=== PATIENT | female | born 1965 | race Caucasian/White ===

== ENCOUNTER → 2020-09-17 15:45 | Outpatient (BNVA) | payer OTHER, SELFPAY | PROVIDERS: PCP Internal Medicine; Visit Provider Physician Assistant | DX: Z76.89 Persons encountering health services in other specified circumstances (principal) ==

== ENCOUNTER → 2020-09-21 08:10 | Outpatient (BNVA) | payer OTHER, SELFPAY | PROVIDERS: PCP Internal Medicine; Referring Provider Internal Medicine; Visit Provider Surgery | DX: Z76.89 Persons encountering health services in other specified circumstances (principal) ==

== ENCOUNTER → 2020-09-28 09:03 | Outpatient (BNVA) | payer OTHER, SELFPAY | PROVIDERS: PCP Internal Medicine; Visit Provider Physician Assistant | DX: Z76.89 Persons encountering health services in other specified circumstances (principal) ==

== ENCOUNTER 2020-09-28 09:42 | Outpatient (REF) | payer OTHER, SELFPAY ==
--- NOTE | 2020-09-28 10:14 | ECG_ITS ---
Test Reason : SOB, PREOP Blood Pressure : / mmHG Vent. Rate : 077 BPM Atrial Rate : 077 BPM P-R Int : 182 ms QRS Dur : 090 ms QT Int : 430 ms P-R-T Axes : 050 035 020 degrees QTc Int : 486 ms Normal sinus rhythm Nonspecific T wave abnormality Borderline ECG No previous ECGs available Referred By: Zack Patel Electronically Signed By:SAMIR VILLATORO MD
--- NOTE | 2020-09-28 10:27 | XR_ITS ---
EXAMINATION: XR CHEST CLINICAL INFORMATION: Gastroesophageal reflux disease without esophagitis COMPARISON: None TECHNIQUE: 2 views of the chest were obtained. FINDINGS: The cardiac and mediastinal contours are normal. The lungs are clear. There is no pleural effusion or pneumothorax there are postsurgical changes to the cervical spine. There are mild degenerative changes of the thoracic spine. XR/XR chest 2V IMPRESSION: No evidence for acute disease in the chest.
[2020-09-28 10:48] LABS: MANUAL DIFF FLAG NO
[2020-09-28 10:58] LABS: Eosinophils Absolute Auto 0.1 X10*3/uL (0.0-0.4); Eosinophils Percent Auto 1.3 % (0-4); Hematocrit 40.1 % (37-47); Hemoglobin 13.3 g/dl (12.0-16.0); Imm Gran Abs Auto 0.01 X10*3/uL (0.00-0.03); Imm Gran Pct Auto 0.3 % (0.0-0.4); Lymphocytes Absolute Auto 1.1 X10*3/uL (1.2-4.9); Lymphocytes Percent Auto 28.1 % (20-40); Mean Corpuscular HGB Conc 33.2 g/dl (31.0-35.0); Mean Corpuscular Hemoglobin 29.1 pg (27.0-33.0); Mean Corpuscular Volume 87.7 fL (80-98); Mean Platelet Volume 9.7 fL (9.4-12.3); Monocytes Absolute Auto 0.2 X10*3/uL (0.1-1.2); Monocytes Percent Auto 5.3 % (2-11); Neutrophils Absolute Auto 2.5 X10*3/uL (2.0-8.3); Platelet Count 265 X10*3/uL (160-400); Red Blood Count 4.57 X10*6/uL (4.20-5.50); Red Cell Distribution Width 12.2 % (11.0-16.0)
[2020-09-28 11:01] LABS: Estimated Average Glucose 143 mg/dL; Hemoglobin A1c % 6.6 %
[2020-09-28 11:25] LABS: Alanine Aminotransferase 47 U/L (0-31); Albumin Level 4.7 g/dL (3.5-5.0); Alkaline Phosphatase 87 U/L (39-117); Anion Gap 15 (12-20); Aspartate Amino Transferase 33 U/L (5-31); Bilirubin Total 0.9 mg/dL (0.0-1.0); Blood Urea Nitrogen 17 mg/dL (9-16); C Reactive Protein 0.67 mg/dL (< or = 0.50); Carbon Dioxide 26 mmol/L (22-29); Chloride 103 mmol/L (96-108); Cholesterol 226 mg/dL; Estimated Glomerular Filt Rate 46; Glucose Random 128 mg/dL (60-115); HDL Cholesterol 46 mg/dL; LDL Cholesterol Calculated 154 mg/dl; Potassium 4.1 mmol/l (3.3-5.1); Sodium 140 mmol/L (135-145); Total Protein 7.2 g/dL (6.5-8.0); Triglycerides 132 mg/dL
[2020-09-28 11:50] LABS: Ferritin 145 ng/mL (10-250); TSH reflex Free T4 1.12 mIU/mL (0.32-4.0)
[2020-09-28 11:59] LABS: Folate 13.8 ng/mL (> or = 4.0); Vitamin B12 933 pg/mL (200-900)
[2020-09-29 12:11] LABS: Insulin Level Total 9.8 uIU/mL
[2020-10-01 00:26] LABS: Zinc 68 mcg/dL (60-130)
[2020-10-02 12:52] LABS: Vitamin B1 <6 nmol/L (8-30)
[2020-10-03 10:31] LABS: Vitamin A 88 mcg/dL (38-98)
== END 2020-09-28 09:43 | disposition home or self-care (01) ==
LOC: HO.LAB 09:42
PROVIDERS: PCP Internal Medicine; Visit Provider Surgery
DX: Z01.818 Encounter for other preprocedural examination (principal); K21.9 Gastro-esophageal reflux disease without esophagitis
CPT/HCPCS: 36415; 71046; 80053; 80061; 82607; 82728; 82746; 83036; 83525; 84425; 84443; 84590; 84630; 85025; 86140; 93005

== ENCOUNTER → 2020-10-01 07:47 | Outpatient (BNVA) | payer OTHER, SELFPAY | PROVIDERS: Visit Provider Dietitian, Registered | DX: Z76.89 Persons encountering health services in other specified circumstances (principal) ==

== ENCOUNTER 2020-10-08 09:00 | Outpatient (REF) | payer OTHER, SELFPAY ==
--- NOTE | 2020-10-08 08:49 | US_ITS ---
EXAMINATION: US COMPLETE ABDOMEN WITH LIVER ELASTOGRAPHY CLINICAL INFORMATION: Morbid obesity COMPARISON: None. TECHNIQUE: Real-time imaging of the abdominal viscera. Noninvasive ultrasound liver fibrosis assessment is performed using Angela ElastPQ point quantification shear wave elastography (pSWE) with a 5 MHz transducer. Multiple elastography samples are obtained. FINDINGS: PANCREAS: Normal. The visualized pancreatic head and body are normal in appearance. The remainder of the pancreas is obscured from visualization by the overlying bowel gas. ABDOMINAL AORTA: The proximal, middle, and distal aortic segments are normal in caliber. INFERIOR VENA CAVA: Visualized portions are normal. LIVER: There is diffusely increased echogenicity consistent with fatty infiltration. No focal mass or intrahepatic bile ductal dilatation is seen. There is noted with hepatopedal flow within the main portal vein. The right lobe measures 14.2 cm in length. The left lobe measures 11.4 cm in length. Shear wave elastography provides a median stiffness of 1.10 m/s (reference: normal median stiffness is 0.81 - 1.22 m/s). The IQR/median stiffness to assess sampling precision is 0.2 (reference: optimal IQR/median stiffness is under 0.3). GALLBLADDER: Status post cholecystectomy COMMON BILE DUCT: Not identified RIGHT KIDNEY: Status post nephrectomy. LEFT KIDNEY: Normal. No hydronephrosis. No renal calculi or focal parenchymal lesions. The kidney measures 14.8 cm in maximum dimension. SPLEEN: Enlarged. The spleen measures 14.0 cm in maximum dimension. FREE FLUID: None. US/US abdomen comp w elastography IMPRESSION: 1. Fatty infiltration of the liver. 2. Elastography: Liver elastography measurements are within normal (METAVIR Stage F0). Status post right nephrectomy. Mild splenomegaly.
--- NOTE | 2020-10-08 09:12 | FL_ITS ---
EXAMINATION: XR GI SERIES CLINICAL INFORMATION: Gastroesophageal reflux disease without esophagitis. COMPARISON: None. TECHNIQUE: Dual contrast upper GI examination. FINDINGS: Patient swallowed CO2 crystals, thin barium, and thick barium without difficulty. No nasopharyngeal reflux or tracheal aspiration identified. There was a corkscrew appearance within the distal half of the esophagus, however, the patient denies any chest pain or other symptoms with this. There was no delay in esophageal emptying. There is a small hiatal hernia present. No gastroesophageal reflux was elicited including with water siphon test. The stomach demonstrates normal distensibility without evidence of abnormal mass or ulceration. There was no delay in gastric emptying. The duodenal bulb and sweep appear unremarkable. FLUOROSCOPY TIME: 2.1 minutes. DOSE AREA PRODUCT: 29.451 Gy-cm2. FL/FL upper GI series IMPRESSION: Small hiatal hernia without evidence of gastroesophageal reflux. Corkscrew appearance within the distal esophagus with swallowing with no delay in transit appreciated and with no symptoms of chest pain.
== END 2020-10-08 09:01 | disposition home or self-care (01) ==
LOC: HO.US 09:00
PROVIDERS: PCP Internal Medicine; Visit Provider Surgery
DX: Z01.818 Encounter for other preprocedural examination (principal); K21.9 Gastro-esophageal reflux disease without esophagitis; E66.01 Morbid (severe) obesity due to excess calories
CPT/HCPCS: 74240; 76705; 76981

== ENCOUNTER 2020-10-13 09:17 | Outpatient (REF) | payer OTHER, SELFPAY ==
[2020-10-14 15:32] LABS: H Pylori Breath Test NOT DETECTED (NOT DETECTED)
== END 2020-10-13 09:18 | disposition home or self-care (01) ==
LOC: HO.LNP 09:17
PROVIDERS: PCP Internal Medicine; Visit Provider Physician Assistant
DX: Z01.818 Encounter for other preprocedural examination (principal); E66.01 Morbid (severe) obesity due to excess calories
CPT/HCPCS: 83013

== ENCOUNTER → 2020-10-14 07:39 | Outpatient (BNVA) | payer OTHER, SELFPAY | PROVIDERS: PCP Internal Medicine; Visit Provider Surgery | DX: Z76.89 Persons encountering health services in other specified circumstances (principal) ==

== ENCOUNTER → 2020-10-20 08:21 | Outpatient (BNVA) | payer OTHER, SELFPAY | PROVIDERS: Visit Provider Dietitian, Registered | DX: Z76.89 Persons encountering health services in other specified circumstances (principal) ==

== ENCOUNTER → 2020-10-30 08:39 | Outpatient (BNVA) | payer OTHER, SELFPAY | PROVIDERS: PCP Internal Medicine; Visit Provider Physician Assistant | DX: Z76.89 Persons encountering health services in other specified circumstances (principal) ==

== ENCOUNTER → 2020-11-02 08:04 | Outpatient (BNVA) | payer OTHER, SELFPAY | PROVIDERS: PCP Internal Medicine; Referring Provider Internal Medicine; Visit Provider Surgery | DX: Z76.89 Persons encountering health services in other specified circumstances (principal) ==

== ENCOUNTER → 2020-11-10 15:01 | Outpatient (REF) | payer OTHER, SELFPAY ==
--- NOTE | 2020-11-10 15:04 | CA_ITS ---
Transthoracic Echocardiogram Patient (Last, First, Middle): Irma Can L Gender: Female Date of : 1965 Age: 55 Procedure Date: 11/10/2020 Procedure Type: Transthoracic Echocardiogram Location: OP Height: 162.56 cm Weight: 99.34 kg BSA: 2.03 m2 Heart Rate: bpm BP: 134 / 80 mmHg Program Control Analyst: Referring MD: Zack Patel MD Symptoms: I10 HTN, Z01.818 PRE OP Study Quality: Fair ECG Rhythm: Sinus Conclusions: - The left ventricular systolic function is normal. The visually estimated ejection fraction is between 60-65%. - No obvious valvular pathology seen on this study. Findings Procedure Information Contrast agent, definity, is being given per protocol without apparent complications. Left Ventricle Normal left ventricular cavity size. There is mildly increased left ventricular wall thickness. The left ventricular systolic function is normal. The visually estimated ejection fraction is between 60-65%. There is no evidence of regional wall motion abnormalities. Diastolic function is normal for age. Right Ventricle Normal right ventricular cavity size and systolic function. Atria The left atrium is normal in size. The right atrium is normal in size. Aortic Valve There is a normal trileaflet aortic valve. There is no aortic valve stenosis. There is no aortic valve regurgitation. Mitral Valve The mitral valve appears normal. There is trace mitral valve regurgitation. There is no mitral valve stenosis. Pulmonic Valve The pulmonic valve was not well visualized. Tricuspid Valve Normal tricuspid valve structure. There is trace tricuspid valve regurgitation. The pulmonary artery systolic pressure is normal. Great Vessels The aortic annulus, sinuses of valsalva, and asc aorta are normal in size. Venous The inferior vena cava is normal in size and collapses greater than 50% with inspiration. Pericardium/Pleural There is no evidence of pericardial effusion. Prior Study Comparison No prior study available for comparison. Recommendations, Care & Conclusions No obvious valvular pathology seen on this study. Measurements 2D Linear Measurements RVIDd: 3.28 RVIDd Index: 1.62 IVSd: 1.12 0.6-0.9/0.6-1.0 cm LVIDd: 4.76 3.9-5.3/4.2-5.9 cm LVIDd Index: 2.34 2.4-3.2/2.2-3.1 cm/m2 LVIDs: 2.64 2.0-3.6 cm LVPWd: 1.31 0.7-1.1 cm Ao Root: 3.00 2.1-3.5 cm LA Diam: 3.60 2.7-3.8/3.0-4.0 cm LAIDs Index: 1.77 1.5-2.3 cm/m2 LV Mass: 274.40 67-162/88-224 g LV Mass Index: 135.17 43-95/49-115 g/m2 LVOT Diam: 2.20 3.0+(-)1.3 cm 2D Systolic Function EF 4C: 72.20 >55% EF 2C: 56.30 >55% EF BiP: 65.20 >55% Mitral Valve MV Pk E: 0.73 MV PK A: 0.83 MV Decel Time: 208.00 E/A: 0.90 E'Lateral: 6.96 E'Medial: 5.00 E/E' Med: 14.60 E/E' Lat: 10.50 Aortic Valve AoV Pk Giorgio: 1.32 AoV Mn Giorgio: 1.06 AoV VTI: 0.31 AoV Pk Grad: 7.00 Aov Mn Grad: 5.00 KRISH Cont.VTI: 2.58 LVOT LVOT Pk Giorgio: 0.97 LVOT Mn Giorgio: 0.66 LVOT VTI: 0.21 LVOT Pk Grad: 4.00 LVOT Mn Grad: 2.00 LVOT Diam: 2.20 LVOT Area: 3.80 Diastolic Function MV Pk E: 0.73 MV Pk A: 0.83 E/A: 0.90 E'Medial: 5.00 E/E' Med: 14.60 E' Laterial: 6.96 E/E' Lat: 10.50 Tricuspid Valve RA Press: 3.00 Great Vessels Aorta Ao Root-2D: 3.00 2.0-3.7 cm Ao Asc: 3.20 2.1-3.4 cm Updated in Other Vendor System with Status of Final Rojas Castillo MD electronically signed on 11/11/2020 8:58:33 AM with status of Final
== END ==
LOC: HO.CARD 15:01
PROVIDERS: PCP Internal Medicine; Visit Provider Surgery
DX: Z01.818 Encounter for other preprocedural examination (principal); I10 Essential (primary) hypertension; R94.31 Abnormal electrocardiogram [ECG] [EKG]
CPT/HCPCS: 93306; Q9957

== ENCOUNTER → 2020-11-25 08:25 | Outpatient (BNVA) | payer OTHER, SELFPAY | PROVIDERS: PCP Internal Medicine; Visit Provider Surgery | DX: Z76.89 Persons encountering health services in other specified circumstances (principal) ==

== ENCOUNTER → 2020-12-18 13:59 | Outpatient (BNVA) | payer OTHER, SELFPAY | PROVIDERS: PCP Internal Medicine; Visit Provider Physician Assistant ==

== ENCOUNTER 2020-12-21 06:28 | Outpatient (REF) | payer OTHER, SELFPAY ==
[2020-12-21 07:06] LABS: MANUAL DIFF FLAG NO
[2020-12-21 07:09] LABS: Basophils Percent Auto 0.6 % (0-2); Eosinophils Absolute Auto 0.1 X10*3/uL (0.0-0.4); Eosinophils Percent Auto 1.6 % (0-4); Hematocrit 41.7 % (37-47); Hemoglobin 13.4 g/dl (12.0-16.0); Imm Gran Abs Auto 0.01 X10*3/uL (0.00-0.03); Imm Gran Pct Auto 0.2 % (0.0-0.4); Lymphocytes Absolute Auto 1.4 X10*3/uL (1.2-4.9); Lymphocytes Percent Auto 28.5 % (20-40); Mean Corpuscular HGB Conc 32.1 g/dl (31.0-35.0); Mean Corpuscular Hemoglobin 27.9 pg (27.0-33.0); Mean Corpuscular Volume 86.9 fL (80-98); Mean Platelet Volume 9.3 fL (9.4-12.3); Monocytes Absolute Auto 0.3 X10*3/uL (0.1-1.2); Monocytes Percent Auto 6.5 % (2-11); Neutrophils Absolute Auto 3.2 X10*3/uL (2.0-8.3); Neutrophils Percent Auto 62.6 % (45-73); Platelet Count 233 X10*3/uL (160-400); Red Cell Distribution Width 12.9 % (11.0-16.0); White Blood Count 5.1 X10*3/uL (4.8-10.8)
[2020-12-21 07:19] LABS: INTERNATIONAL NORM RATIO 1.1 (0.9-1.1)
[2020-12-21 07:25] LABS: Alanine Aminotransferase 20 U/L (0-31); Albumin Level 4.4 g/dL (3.5-5.0); Alkaline Phosphatase 91 U/L (39-117); Anion Gap 13 (12-20); Aspartate Amino Transferase 14 U/L (5-31); Bilirubin Total 1.1 mg/dL (0.0-1.0); Blood Urea Nitrogen 21 mg/dL (9-16); C Reactive Protein 0.48 mg/dL (< or = 0.50); Calcium 9.6 mg/dL (8.4-10.2); Carbon Dioxide 27 mmol/L (22-29); Chloride 105 mmol/L (96-108); Cholesterol 184 mg/dL; Estimated Glomerular Filt Rate 47; Glucose Random 97 mg/dL (60-115); HDL Cholesterol 44 mg/dL; LDL Cholesterol Calculated 121 mg/dl; Sodium 141 mmol/L (135-145); Total Protein 6.8 g/dL (6.5-8.0); Triglycerides 98 mg/dL
[2020-12-21 07:47] LABS: TSH reflex Free T4 1.79 mIU/mL (0.32-4.0)
[2020-12-21 07:53] LABS: Estimated Average Glucose 111 mg/dL; Hemoglobin A1C 128.0404 umol/L; Hemoglobin A1c % 5.5 %
[2020-12-22 17:52] LABS: Insulin Level Total 5.1 uIU/mL
== END 2020-12-21 06:29 | disposition home or self-care (01) ==
LOC: HO.LAB 06:28
PROVIDERS: PCP Internal Medicine; Visit Provider Surgery
DX: E66.9 Obesity, unspecified (principal); Z68.36 Body mass index [BMI] 36.0-36.9, adult
CPT/HCPCS: 36415; 80053; 80061; 83036; 83525; 84443; 85025; 85610; 85730; 86140

== ENCOUNTER 2020-12-29 05:55 | Inpatient (IN) | payer OTHER, SELFPAY ==
[2020-12-16 13:34] VITALS: BMI 37.0
--- NOTE | 2020-12-28 10:59 | P.CONAN_ITS ---
Documented by User: Indy Cunha 12/28/20 11:02 HPI - Anesthesia Eval Consult details Narrative: 55yo F for Gastrectomy Sleeve PMFSH Past Medical History Medical History Anxiety Depression GERD (gastroesophageal reflux disease) Hx of renal cell carcinoma Morbid obesity Periodic limb movement disorder Sleep apnea with use of nocturnal bilevel positive airway pressure (BPAP) Family History Family History Father No problems noted. Mother No problems noted. Brother No problems noted. Sister No problems noted. Son No problems noted. Daughter No problems noted. Daughter Neuroblastoma Surgical History Surgical History History of anterior cruciate ligament surgery History of nephrectomy Hx of cholecystectomy Hx of lumpectomy Hx of rectal sphincterotomy S/P excision of lipoma S/P ZANDRA-BSO (total abdominal hysterectomy and bilateral salpingo-oophorectomy) Social History Social History Are you a primary patient care manager to a significant other at home: No Do you presently have visiting nurse or other home services: No Alcohol intake: current Alcohol intake frequency: a few times a month Smoking Status: Former smoker Smoking Quit Date: 16 yrs ago Use of substances other than those prescribed or required for medical reasons: No Have you been hit, kicked, punched, or otherwise hurt by someone within the past year? If so, by whom?: No Advance Directives: No Advance Directives Information Provided: No Advance Directives on File: No Recently lost weight without trying: No Meds Allergies Allergy/AdvReac Type Severity Reaction Status Date / Time codeine Allergy Severe Anaphylaxis Verified 12/21/20 12:32 gallium Allergy Severe Anaphylaxis Verified 12/21/20 12:32 lansoprazole [Prevacid] Allergy Severe Anaphylaxis Verified 12/21/20 12:32 morphine Allergy Severe Anaphylaxis Verified 12/21/20 12:32 Home Medications Medication Instructions Recorded Confirmed Type bupropion HCl 300 mg 24 hr tablet, 300 mg PO BEDTIME 09/21/20 12/21/20 History extended release citalopram 40 mg tablet 40 mg PO BEDTIME 09/21/20 12/21/20 History pramipexole 0.5 mg tablet 0.5 mg PO BEDTIME 09/21/20 12/21/20 History famotidine 40 mg PO BEDTIME 12/16/20 12/21/20 History senna 8.6 mg PO BEDTIME 12/16/20 12/21/20 History Exam Exam Date and Time: December 28, 2020 1059 Height,Weight and Vital Signs: Height 5 ft 4 in Weight 97.976 kg Pertinent Lab Results Pertinent Lab Results: Laboratory Tests 12/21/20 06:50 Blood Type A Positive Antibody Screen NEGATIVE Laboratory Tests 12/21/20 12/21/20 12/21/20 06:50 06:50 06:50 WBC 5.1 Hgb 13.4 Hct 41.7 Plt Count 233 PT 13.0 INR 1.1 APTT 35.0 Sodium 141 Potassium 4.0 Chloride 105 Carbon Dioxide 27 BUN 21 H Creatinine 1.20 Estimated GFR 47 Hemoglobin A1c % Total Bilirubin 1.1 H AST 14 D ALT 20 Alkaline Phosphatase 91 C-Reactive Protein 0.48 Total Protein 6.8 Albumin 4.4 TSH 1.79 12/21/20 06:50 WBC Hgb Hct Plt Count PT INR APTT Sodium Potassium Chloride Carbon Dioxide BUN Creatinine Estimated GFR Hemoglobin A1c % 5.5 Total Bilirubin AST ALT Alkaline Phosphatase C-Reactive Protein Total Protein Albumin TSH Narrative Narrative: Echo 10/2020 Conclusions: - The left ventricular systolic function is normal. The visually estimated ejection fraction is between 60-65%. - No obvious valvular pathology seen on this study. EKG 09/2020 Normal sinus rhythm Nonspecific T wave abnormality Borderline ECG No previous ECGs available Assessment and Plan Assessment Anesthesia Assessment: Chart Reviewed Documented by User: Deny Casarez 12/29/20 10:19 [facility] Past Medical History Medical History Anxiety Depression GERD (gastroesophageal reflux disease) Hx of renal cell carcinoma Morbid obesity Periodic limb movement disorder Sleep apnea with use of nocturnal bilevel positive airway pressure (BPAP) Family History Family History Father No problems noted. Mother No problems noted. Brother No problems noted. Sister No problems noted. Son No problems noted. Daughter No problems noted. Daughter Neuroblastoma Surgical History Surgical History History of anterior cruciate ligament surgery History of nephrectomy Hx of cholecystectomy Hx of lumpectomy Hx of rectal sphincterotomy S/P excision of lipoma S/P ZANDRA-BSO (total abdominal hysterectomy and bilateral salpingo-oophorectomy) Social History Social History Are you a primary patient care manager to a significant other at home: No Do you presently have visiting nurse or other home services: No Alcohol intake: current Alcohol intake frequency: a few times a month Smoking Status: Former smoker Smoking Quit Date: 16 yrs ago Use of substances other than those prescribed or required for medical reasons: No Have you been hit, kicked, punched, or otherwise hurt by someone within the past year? If so, by whom?: No Advance Directives: No Advance Directives Information Provided: No Advance Directives on File: No Recently lost weight without trying: No Meds Allergies Allergy/AdvReac Type Severity Reaction Status Date / Time codeine Allergy Severe Anaphylaxis Verified 12/21/20 12:32 gallium Allergy Severe Anaphylaxis Verified 12/21/20 12:32 lansoprazole [Prevacid] Allergy Severe Anaphylaxis Verified 12/21/20 12:32 morphine Allergy Severe Anaphylaxis Verified 12/21/20 12:32 Home Medications Medication Instructions Recorded Confirmed Type bupropion HCl 300 mg 24 hr tablet, 300 mg PO BEDTIME 09/21/20 12/21/20 History extended release citalopram 40 mg tablet 40 mg PO BEDTIME 09/21/20 12/21/20 History pramipexole 0.5 mg tablet 0.5 mg PO BEDTIME 09/21/20 12/21/20 History famotidine 40 mg PO BEDTIME 12/16/20 12/21/20 History senna 8.6 mg PO BEDTIME 12/16/20 12/21/20 History Exam Airway Mallampati Class: II TM Dist: >3cm Neck ROM: Full Loose/Missing/Broken Teeth: No Heart: rrr+s1s2 Lungs: cta b/l Assessment and Plan Assessment Anesthesia Assessment: Anesthesia Plan Discussed, PAT Visit and Chart Reviewed Final Anesthetic Review NPO: Yes ASA Class: III Final Preanesthetic Review: No Changes in Pt Med Stat, Meds/Allgs Chart Reviewed, Consent Obtained/Reviewed and Anes Risks/Benef Reviewed Patient Risk: Low Procedure Risk: Low Assessment/Block/Sedation in SS: Assess/Block/Sedation-SS Anesthetic Plan Anesthetic Plan: GA and Agree w/ Assess. and Plan Disposition: Standard PACU
--- NOTE | 2020-12-28 20:42 | P.HPSUR_ITS ---
Pre-Procedural Eval Section A The patient is an INPATIENT: Yes The History & Physical has been completed within 30 days and I have reviewed it.: Yes Section B Chief Complaint: obesity Details of Present Illness: Obesity Relevant Family History (Specify if Yes): No Present Medications: None Medical History: No relevant PMH History of Previous Operations: No relevant previous surgery Allergies: Allergies Allergy/AdvReac Type Severity Reaction Status Date / Time codeine Allergy Severe Anaphylaxis Verified 12/21/20 12:32 gallium Allergy Severe Anaphylaxis Verified 12/21/20 12:32 lansoprazole [Prevacid] Allergy Severe Anaphylaxis Verified 12/21/20 12:32 morphine Allergy Severe Anaphylaxis Verified 12/21/20 12:32 Review of Systems Sugical H&P ROS: Negative: Constitution, Cardiovascular, Respiratory, N eurological, Psychiatric, Hem-Onc, Allergic/Immunologic, Gastrointestinal, Genitourinary, Musculoskeletal, Integumentary, Endocrine and Eyes/Ears/Nose/Throat Exam Surgical H&P Exam: Normal: HEENT, Normal: Heart, Normal: Lungs, Normal: Extremities, Normal: Abdomen, Normal: Skin and Normal: Neurological Plan Diagnosis/Plan: Unchanged I have reviewed the history and physical and performed a pertinent physical examination on my patient. No changes have occurred unless specified.
[2020-12-29] VITALS (14 sets, daily range): BP systolic 117–155; BP diastolic 69–95; PULSE 83–105; RESP 12–18; TEMP 36.2–36.8; O2SAT 93–100
[2020-12-29 09:13] LABS: COVID-19 Test Negative (Negative); IDNOW Serial# 9DD0AD1C
[2020-12-29] MEDS: Lactated Ringers 1,000 ML 100 ML IVCONT (09:23)
[2020-12-29] MEDS: Lactated Ringers 1,000 ML 999 ML IVCONT (09:23)
--- NOTE | 2020-12-29 12:50 | P.BOP_ITS ---
Brief Operative Note Date of Service: 12/29/20 Pre-op diagnosis: Severe obesity and comorbidities (see below) Post-op diagnosis: same (diaphragmatic hernia) Procedure: INITIAL PATIENT BMI ON PRESENTATION AT OUR OFFICE: 42.9 kg/m2 LAST BMI BEFORE SURGERY: 36.7 kg/m2 COMORBIDITIES: non-insulin dependent diabetes, hyperlipidemia, sleep apnea on Bipap, depression, anxiety, GERD, diaphragmatic hernia, restless leg syndrome, liver steatosis The patient participated in an intensive weekly lifestyle intervention and exercise program during which the patient has lost between the initial office visit and the last preoperative visit 37.4lbs, or 14.97% of initial actual body weight. The patient met the BMI-criteria for bariatric surgery based on the BMI on initial presentation. The patient should not be penalized for achieving such weight loss because it is not sustainable long-term without surgical intervention and it was achieved in preparation for bariatric surgery under my direction and based on my published research ([email or web address] and [email or web address]) that a 10% preoperative weight loss improves long-term weight loss after surgery and re duces perioperative complications. Insurance carriers such as [facility] have endorsed my recommendations and have included in their policies criteria to include a 10% preoperative weight loss requirement. PROCEDURE: Esophago-gastroscopy, laparoscopic repair of incarcerated diaphragmatic hernia, laparoscopic sleeve gastrectomy and laparoscopic gastropexy INDICATIONS: This is a 55 year-old female who was electively scheduled for laparoscopic, possibly open sleeve gastrectomy. The risks and complications of the procedure were discussed with the patient in advance, particularly the possibility of ; pulmonary embolism; staple line leak; bleeding; GERD; cardiac, pulmonary, or renal complications; as well as long-term problems such as insufficient weight loss, vitamin deficiency, strictures, or ulcers. The patient understood all the risks, and was in agreement to proceed with surgery. DESCRIPTION OF PROCEDURE: After informed consent was obtained from the patient, the patient was given pre operative antibiotics, and was transferred to the operating room. After successful induction of general anesthesia, a White catheter and pneumatic compressive devices were placed on both lower extremities. An upper endoscopy was performed next. The oropharynx and esophagus appeared to be within normal limits. There was a diaphragmatic hernia present of moderate size consistent with the findings of the preoperative upper GI. The stomach was entered. Then after all fluid and air were suctioned and the stomach was fully decompressed, the scope was withdrawn and secured in the mid esophagus. The patient was then prepped and draped in the usual sterile manner, and abdominal access was established at the right upper quadrant with the Daniel technique. A 12 mm blunt port was inserted, and the abdomen was insufflated with CO2 to a pressure of 15 mmHg. Under direct visualization, additional ports were placed, specifically two 5 mm Versi-step ports to the left upper quadrant, and a 5 mm Versi-Step port to the right upper quadrant. 1% lidocained plan was used to infiltrate all port sites as well as all fascia defects. Following that, the patient was placed in a steep reverse Trendelenburg position. An additional 5 mm port was placed to the right flank for the Mediflex retractor that was used to retract the left lobe of the liver. The gastro-esophageal fat pad was opened with the ultrasonic device (Thunderbeat, Olympus) and the anterior esophagus and hiatus were exposed. The angle of His was opened with the ultrasonic device the fundus of the stomach from any diaphragmatic and splenic attachments. I then opened the gastrocolic ligament between the transverse colon and the greater curvature of the stomach with the ultrasonic device to enter the lesser sac and facilitate the ligation of the short gastric vessels. I started at a mid-point along the greater curvature and using the Thunderbeat, all short gastric vessels were divided all the way to the angle of His until the left debbie was completely dissected at its entirety. I then divided the gastro-colic ligament distally to a distance of about 3-4 cm proximal to the esophagus. 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 Those were lysed completely with the ultrasonic device. There was an obvious significant-sized hiatal hernia. I continued dissecting along the hiatus toward the left debbie and the angle of His. I fully mobilized the fat pad that was incarcerated in the hernia. I then continued by dissecting even further into the posterior retro-esophageal space all the way to the angle of His. I continued to mobilize the esophagus into the mediastinum circumferentially. Both vagal nerves were seen and preserved. The right debbie was also dissected completely. At that point, I was able to have at least 3 to 5 cm of esophagus into the abdomen. After I completely mobilized the esophagus from both the left and right debbie and I had a good mobilization of the esophagus circumferentially, I closed the hernia defect with one interrupted #0 Surgidac suture using the Endo Stitch device, which was placed posterior to the esophagus. The stomach was then divided transversely with one Endo ADRIANA-45 and four ADRIANA-60 articulating purple loads using the [employer] stapler and loads. Every effort was made that the gastric sleeve had a tubular shape and an even caliber throughout. Once the sleeve resection was completed, the staple line of the gastric sleeve was reinforced with Hemoclips. The resected stomach was retrieved without difficulty from the Daniel port. A gastropexy was then performed in order to prevent postoperative GERD and partial gastric volvulus. Several interrupted 2.0 Surgidac sutures were placed between the sleeve's staple line and the previously divided greater omentum and gastro-colic ligament using the Endo-Stitch device. An upper endoscopy was performed. There was no narrowing at the GE junction. The scope was easily advanced all the way to the pylorus which was clearly visualized. There was no narrowing anywhere and the sleeve's caliber was even throughout. The sleeve's staple line was inspected and there was no evidence of ischemia, bleeding or dehiscence. At that point the gastroscope was withdrawn from the patient?s mouth while we were decompressing the bowel and the stomach from any remaining air. I looked into the lesser sac to see how the sleeve was situating and it was situating well. There was no bleeding from the staple line, spleen, or short gastric vessels. The Mediflex retractor was removed, and the undersurface of the liver was inspected and there was no bleeding. The patient was placed in supine position. I closed the fascial defect of the 12 mm port site with a figure of eight #1 Polysorb suture. Then 100 cc 0.25 % Marcaine plain with 10 mg of Dexamethasone were used to infiltrate the fascial closure as well as all skin incisions. At this point, the abdomen was deflated, all ports were removed under direct vision, and no bleeding was noted from any of the port sites. The skin incisions were irrigated with saline and were closed with 4-0 absorbable monofilament sutures. Steri-Strips and OpSites were used to cover all incisions. The patient was extubated and was transferred in stable condition to the recovery room for further care. I was present and performed all rice parts of the procedure. Ms. Dardenson was the assistant athletic trainer. There were no residents to assist with this case. Christiano Patel MD, PhD, FACS Surgeon: Zack Patel MD Anesthesia: GETA, local and other (TAP block) Prescription Eyeglass Maker: Coty Julien Estimated blood loss (mL): 10 IV fluids (mL): 3,000 Urine output (mL): 0 Pathology: other (stomach) Condition: stable Disposition: PACU
--- NOTE | 2020-12-29 12:58 | P.DS_ITS ---
DS: Providers Provider Date of Service: 12/30/20 Date of admission: 12/29/20 05:55 Primary care physician: Robb Serrano MD DS: Medications Discharge Medications Home Medications: Home Medications Medication Instructions Recorded Confirmed bupropion HCl 300 mg 24 hr tablet, 300 mg PO BEDTIME 09/21/20 12/21/20 extended release citalopram 40 mg tablet 40 mg PO BEDTIME 09/21/20 12/21/20 pramipexole 0.5 mg tablet 0.5 mg PO BEDTIME 09/21/20 12/21/20 famotidine 40 mg PO BEDTIME 12/16/20 12/21/20 senna 8.6 mg PO BEDTIME 12/16/20 12/21/20 Previous Rx's Medication Instructions Recorded thiamine HCl (vitamin B1) 100 mg 100 mg PO DAILY #30 tab 10/14/20 tablet ondansetron HCl 4 mg tablet 4 mg PO Q6H PRN #30 tab 11/02/20 polyethylene glycol 3350 17 gram 17 g PO DAILY #14 ea 11/02/20 oral powder packet sucralfate 100 mg/mL oral 10 ml PO BID #420 ml 11/02/20 suspension pantoprazole 40 mg tablet,delayed 40 mg PO DAILY #30 tab 12/21/20 release DS: Summary Time Spent with Patient Time attestation: ADMITTING DIAGNOSIS: morbid obesity, GERD, hiatal hernia, restless leg, SARITA, anxiety/depression DISCHARGE DIAGNOSIS: same, s/p laparoscopic sleeve gastrectomy and hiatal hernia repair PAST SURGICAL HISTORY: lap artem, nephrectomy, lumpectomy, ZANDRA/BSO, ACL repair PROCEDURE: upper endoscopy, laparoscopic sleeve gastrectomy with gastropexy and hiatal hernia repair DISCHARGE SUMMARY: History of Present Illness: The patient is a 55year-old woman with a BMI of 42.8 kg/m2 and associated co- morbidities as described above. The patient had extensive work-up,lost 37.4 lbs preoperatively and was electively scheduled for laparoscopic, possible open sleeve gastrectomy and gastropexy. Risks and complications of the surgery were discussed with the patient in advance, particularly the possibility of , pulmonary embolism, anastomotic leak, bleeding, bowel injury, GERD, cardiac, renal or pulmonary complications. The patient understood all the risks and was in agreement with the surgical plan. Hospital Course: The patient underwent an uneventful laparoscopic sleeve gastrectomy with gastropexy and repair of hiatal hernia on the day of admission. Postoperatively, the patient was transferred to the surgical floor. The patient was on IV Acetaminophen and IV dilaudid for pain control. Patient was started on bariatric phase 1 diet POD #0. On postoperative day one, the patient was feeling well without nausea, vomiting, fevers, or tachycardia. The patient had some mild incisional pain. The abdomen was soft. On the morning of postoperative day one, the patient was continued on 1 ounce of water or ice every half hour. During the first day, the patient did fairly well, having some incisional pain, but able to ambulate adequately and to tolerate liquids well. Since the patient is doing well, we decided that the patient was ready to be discharged. The patient was given instructions to follow-up with me next week and to call my office for any fever over 101, persistent abdominal pain, nausea, vomiting, GERD, symptoms of DVT such as calf tenderness, or leg swelling, or pulmonary embolism such as chest pain or shortness of breath. The patient was also instructed to drink 40-60 ounces of liquids per day using the 1-ounce cups. The patient was given prescription for Tylenol for pain, Zofran prn for nausea, and pantoprazole and carafate. The patient was encouraged to ambulate and use the incentive spirometer. The patient was allowed to shower, but no baths, and encouraged to stay active at home. All of these instructions were given to the patient personally. All questions were answered and the patient understood all instructions, the instructions were also given to the patient in print. Total time spent providing and/or coordinating discharge services: 30 minutes Discharge coordination time: Greater than 30 minutes Physical Exam Vital Signs: Vital Signs: Last Vital Signs Temp 97.6 F 12/29/20 08:55 Pulse 83 12/29/20 08:55 Resp 16 12/29/20 08:55 BP 117/84 12/29/20 08:55 Pulse Ox 97 12/29/20 08:55 Body Mass Index 37.0 DS: Data Data Completed and Pending Pending studies at discharge: Pending at discharge 12/29/20 11:16 Surgical [PTH] Routine Labs on day of discharge: Laboratory Tests 12/21/20 12/29/20 06:50 08:41 COVID-19 ([facility]ISHA) Negative COVID-19 Clin Com See Note Blood Type A Positive Antibody Screen NEGATIVE Discharge Plan Discharge Anticipated Discharge Date/Time: 12/30/20 11:56 Patient Disposition: Home, Self-Care Referrals: Robb Serrano MD [Primary Care Provider] - Discharge Medications: Continued pramipexole 0.5 mg tablet 0.5 mg PO BEDTIME RF: 0 citalopram 40 mg tablet 40 mg PO BEDTIME RF: 0 bupropion HCl 300 mg tablet extended release 24 hr 300 mg PO BEDTIME RF: 0 pantoprazole 40 mg tablet,delayed release (DR/EC) 40 mg PO DAILY Qty: 30 RF: 2 sucralfate 100 mg/mL suspension 10 ml PO BID Qty: 420 RF: 2 ondansetron HCl [Zofran] 4 mg tablet 4 mg PO Q6H PRN (Reason: nausea and vomiting) Qty: 30 RF: 0 Discontinued senna 8.6 mg Capsule 8.6 mg PO BEDTIME RF: 0 famotidine 40 mg tablet 40 mg PO BEDTIME RF: 0 thiamine HCl (vitamin B1) 100 mg tablet 100 mg PO DAILY Qty: 30 RF: 2 polyethylene glycol 3350 [Miralax] 17 gram powder in packet 17 g PO DAILY Qty: 14 RF: 0 Discharge Orders: Discharge Order (Routine); Ordered 12/30/20 Ordered By: Zack Patel Diet: other Activity on Discharge: No heavy lifting Stand Alone Forms: Patient Portal Discharge page Activity Restrictions/Additional Instructions: No tub baths, sex or returning to work until discussed at first post op appointment. No exercise, alcohol, tobacco or illegal drug use. Continue to use incentive spirometer hourly while awake. Walk in home for 5- 10 minutes every 2 hours during the first week. Continue phase 1 diet today and start phase 2 diet tomorrow morning. Follow all instructions in the bariatric handbook and call with any questions. Visit Report Forms: Patient Portal Discharge page Care Plan Goals: weight loss Health Concerns: obesity Plan of Treatment: see discharge instructions Discharge Date/Time: 12/30/20 09:40
--- NOTE | 2020-12-29 13:02 | P.PNGS_ITS ---
Subjective Subjective Date of Service: 12/30/20 Interval history: Patient has mild incisional pain. Was able to ambulate and use the incentive spirometer. Physical Exam Vital Signs: Vital Signs: Last Vital Signs Temp 97.2 F 12/29/20 12:52 Pulse 90 12/29/20 12:57 Resp 14 12/29/20 12:57 BP 138/71 12/29/20 12:57 Pulse Ox 100 12/29/20 12:57 Body Mass Index 37.0 GI: Inspection: Yes normal to inspection, Yes incision (dry, clean and intact) and Yes obesity Extrem: Right lower extremity: normal to inspection (no calf tenderness) Left lower extremity: normal to inspection (no calf tenderness) Progress Note: A&P Assessment and plan (1) Obesity: Status: Acute (2) BMI 36.0-36.9,adult: Status: Acute (3) Restless leg syndrome: Status: Acute (4) Sleep apnea with use of nocturnal bilevel positive airway pressure (BPAP): Status: Acute (5) Anxiety: Status: Acute (6) Depression: Status: Acute (7) GERD (gastroesophageal reflux disease): Status: Acute (8) Diaphragmatic hernia: Status: Acute (9) S/P repair of paraesophageal hernia: Status: Acute (10) S/P laparoscopic sleeve gastrectomy: Status: Acute Assessment and Plan: 55 year old female was admitted 12/29/2020 with morbid obesity and comorbidities. Problem 1: s/p laparoscopic sleeve gastrectomy, gastropexy, diaphragmatic herni a repair, and lysis of adhesions Status: Doing well Plan: Check am labs, If OK, will continue phase 1 bariatric diet and discharge later today. (11) Steatosis, liver: Status: Acute (12) Hyperlipidemia: Status: Acute (13) Congenital intra-abdominal adhesions: Status: Acute Fall Risk Details Current Medications: Current Medications Generic Name Dose Route Start Last Admin Trade Name Freq PRN Reason Stop Dose Admin Fentanyl 50 mcg 12/29/20 10:20 Fentanyl Citrate/Pf 100 Mcg/2 Ml Vial IVPUSH Q5M PRN Pain, Moderate (Pain Scale 4-6 Hydromorphone HCl 0.5 mg 12/29/20 10:20 Hydromorphone Hcl 0.5 Mg/0.5 Ml Syringe IVPUSH Q5M PRN Pain, Severe (Pain Scale 7-10) Cefazolin Sodium/Dextrose 2 gm in 50 mls @ 100 mls/hr 12/29/20 06:00 Ancef IV 12/29/20 23:00 PREOP JOSE Lactated Ringer's 1,000 mls @ 100 mls/hr 12/29/20 08:00 12/29/20 09:23 Lr IVCONT 100 mls/hr .Q10H JOSE Administration Promethazine HCl 12.5 mg/ 50.5 mls @ 202 mls/hr 12/29/20 10:20 Sodium Chloride IV ONCE PRN Nausea and Vomiting Ondansetron HCl 4 mg 12/29/20 10:20 Ondansetron Hcl 4 Mg/2 Ml Vial IVPUSH ONCE PRN Nausea and Vomiting Oxycodone HCl 10 mg 12/29/20 10:20 Oxycodone Hcl Immed Release 5 Mg Tablet PO ONCE PRN Pain, Severe (Pain Scale 7-10) Time Spent With Patient Time: Total time spent is greater than 50% in coordination of care (as documented) at patient's floor/unit and/or counseling patient: Time with patient: less than 15 minutes
[2020-12-29 13:22] LABS: Hemoglobin 14.2 g/dl (12.0-16.0)
[2020-12-29 13:50] LABS: Anion Gap 14 (12-20); Blood Urea Nitrogen 16 mg/dL (9-16); Calcium 8.5 mg/dL (8.4-10.2); Carbon Dioxide 24 mmol/L (22-29); Chloride 105 mmol/L (96-108); Creatinine Clr Calc Pharmacy 60.4; Estimated Glomerular Filt Rate 46; Glucose Random 91 mg/dL (60-115); Potassium 4.4 mmol/L (3.3-5.1); Sodium 139 mmol/L (135-145)
[2020-12-29] MEDS: diphenhydrAMINE HCL 50 MG/ML VIAL 12.5 MG IVPUSH ×2 (14:00→18:34)
[2020-12-29] MEDS: Famotidine/PF 20 MG/2 ML VIAL IVPUSH ×2 (16:28→20:49)
[2020-12-29] MEDS: ondansetron HCL 4 MG/2 ML VIAL IVPUSH ×2 (16:28→22:40)
[2020-12-29] MEDS: Lactated Ringers 1,000 ML 125 ML IVCONT (16:41)
[2020-12-29] MEDS: ceFAZolin Sodium/Dextrose,Iso 2 GM/50 ML PIGGYBACK IV (16:41)
[2020-12-29] MEDS: 0.9 % Sodium Chloride Flush 3 ML SYRINGE IVFLUSH ×2 (16:53→22:42)
[2020-12-30] MEDS: Pramipexole Di-HCL 0.25 MG TABLET 0.5 MG PO (00:21)
[2020-12-30] MEDS: Lactated Ringers 1,000 ML 125 ML IVCONT (00:22)
[2020-12-30 03:33] VITALS: BP 122/65; PULSE 76; RESP 16; TEMP 36.4; O2SAT 95
[2020-12-30 05:05] LABS: Hematocrit 37.6 % (37-47); Hemoglobin 12.2 g/dl (12.0-16.0); Imm Gran Abs Auto 0.02 X10*3/uL (0.00-0.03); Imm Gran Pct Auto 0.3 % (0.0-0.4); Lymphocytes Absolute Auto 0.7 X10*3/uL (1.2-4.9); Lymphocytes Percent Auto 9.2 % (20-40); MANUAL DIFF FLAG SCAN; Mean Corpuscular HGB Conc 32.4 g/dl (31.0-35.0); Mean Corpuscular Hemoglobin 27.7 pg (27.0-33.0); Mean Corpuscular Volume 85.5 fL (80-98); Mean Platelet Volume 9.8 fL (9.4-12.3); Monocytes Absolute Auto 0.4 X10*3/uL (0.1-1.2); Monocytes Percent Auto 5.4 % (2-11); Neutrophils Percent Auto 85.1 % (45-73); Platelet Count 219 X10*3/uL (160-400); Red Cell Distribution Width 12.6 % (11.0-16.0); SCAN SMEAR FLAG 1; White Blood Count 7.1 X10*3/uL (4.8-10.8)
[2020-12-30 05:19] LABS: Anion Gap 16 (12-20); Blood Urea Nitrogen 12 mg/dL (9-16); Calcium 8.4 mg/dL (8.4-10.2); Carbon Dioxide 22 mmol/L (22-29); Chloride 105 mmol/L (96-108); Creatinine Clr Calc Pharmacy 70.3; Estimated Glomerular Filt Rate 55; Glucose Random 111 mg/dL (60-115); Potassium 4.9 mmol/L (3.3-5.1); Sodium 138 mmol/L (135-145)
[2020-12-30 05:23] LABS: SLIDE REVIEW VERIFIED
[2020-12-30] MEDS: ondansetron HCL 4 MG/2 ML VIAL IVPUSH (06:21)
[2020-12-30 07:43] VITALS: BP 133/72; PULSE 78; RESP 18; TEMP 36.5; O2SAT 99
--- NOTE | 2020-12-30 08:41 | MHC.CM.PN ---
pt lives c spouse in her home. she reports being independent in her care but that her spouse can help her c her needs, including a ride home at dc. pt works a job and drives a car. she denies the need for vna at dc. dc plan is home no svcs. cm to cont. to follow.
[2020-12-30] MEDS: Famotidine/PF 20 MG/2 ML VIAL IVPUSH (08:43)
--- NOTE | 2020-12-30 13:34 | HO.POSTANES ---
Post Anesthesia Evaluation Post Anesthesia Evaluation Vital Signs: Vital Signs Temp Pulse Resp BP Pulse Ox 12/30/20 07:43 97.7 F 78 18 133/72 99 12/30/20 03:33 97.5 F 76 16 122/65 95 Anesthesia: General Endotracheal-GETA Mental Status: Awake Pain Control: Satisfactory Nausea/Vomiting: None Hydration: Adequate Anesthesia-Related Issues: No Anes. Related Issues
== END 2020-12-30 09:40 | disposition home or self-care (01) | DRG 403 ==
LOC: HO.SSSA 12:58 → HO.S3 13:40
PROVIDERS: Physician Assistant; Admitting Provider Surgery; PCP Internal Medicine; Visit Provider Surgery
PROC: 0DB64Z3 Excision of Stomach, Percutaneous Endoscopic Approach, Vertical (ICD-10-PCS; CPT 43845; principal; 2020-12-29 10:10)
DX: E66.01 Morbid (severe) obesity due to excess calories (principal); K44.0 Diaphragmatic hernia with obstruction, without gangrene; E11.9 Type 2 diabetes mellitus without complications; F32.9 Major depressive disorder, single episode, unspecified; F41.9 Anxiety disorder, unspecified; K21.9 Gastro-esophageal reflux disease without esophagitis; Z68.41 Body mass index [BMI] 40.0-44.9, adult; E78.5 Hyperlipidemia, unspecified; G47.30 Sleep apnea, unspecified; G25.81 Restless legs syndrome; Z88.6 Allergy status to analgesic agent; Z20.822 Contact with and (suspected) exposure to COVID-19
CPT/HCPCS: 43775; 43659; 43281; 36415; 80048; 85014; 85018; 85025; 86850; 86900; 86901; 87635; 88307; 88342; 99024; A4649; J0131; J0690; J1100; J1170; J1200; J2250; J2405; J3010

== ENCOUNTER → 2021-01-08 11:38 | Outpatient (BNVA) | payer OTHER, SELFPAY | PROVIDERS: PCP Internal Medicine; Visit Provider Physician Assistant ==

== ENCOUNTER → 2021-02-05 07:55 | Outpatient (BNVA) | payer OTHER, SELFPAY | PROVIDERS: PCP Internal Medicine; Visit Provider Surgery ==

== ENCOUNTER → 2021-03-08 08:14 | Outpatient (BNVA) | payer OTHER, SELFPAY | PROVIDERS: PCP Internal Medicine; Visit Provider Surgery ==

== ENCOUNTER 2021-03-19 06:43 | Outpatient (REF) | payer OTHER, SELFPAY ==
[2021-03-19 08:03] LABS: MANUAL DIFF FLAG NO
[2021-03-19 08:22] LABS: Basophils Percent Auto 0.4 % (0-2); Eosinophils Absolute Auto 0.1 X10*3/uL (0.0-0.4); Eosinophils Percent Auto 1.8 % (0-4); Hematocrit 40.3 % (37-47); Hemoglobin 12.9 g/dl (12.0-16.0); Imm Gran Abs Auto 0.01 X10*3/uL (0.00-0.03); Imm Gran Pct Auto 0.2 % (0.0-0.4); Lymphocytes Absolute Auto 1.2 X10*3/uL (1.2-4.9); Lymphocytes Percent Auto 26.1 % (20-40); Mean Corpuscular Hemoglobin 28.5 pg (27.0-33.0); Mean Platelet Volume 9.9 fL (9.4-12.3); Monocytes Absolute Auto 0.3 X10*3/uL (0.1-1.2); Monocytes Percent Auto 5.9 % (2-11); Neutrophils Percent Auto 65.6 % (45-73); Platelet Count 252 X10*3/uL (160-400); Red Blood Count 4.53 X10*6/uL (4.20-5.50); Red Cell Distribution Width 13.9 % (11.0-16.0); White Blood Count 4.6 X10*3/uL (4.8-10.8)
[2021-03-19 08:28] LABS: Alanine Aminotransferase 23 U/L (0-31); Albumin Level 4.4 g/dL (3.5-5.0); Alkaline Phosphatase 88 U/L (39-117); Anion Gap 12 (12-20); Aspartate Amino Transferase 15 U/L (5-31); Bilirubin Total 1.3 mg/dL (0.0-1.0); Blood Urea Nitrogen 19 mg/dL (9-16); C Reactive Protein 0.19 mg/dL (< or = 0.50); Calcium 9.5 mg/dL (8.4-10.2); Carbon Dioxide 27 mmol/L (22-29); Chloride 106 mmol/L (96-108); Cholesterol 185 mg/dL; Estimated Glomerular Filt Rate 57; Glucose Random 93 mg/dL (60-115); HDL Cholesterol 49 mg/dL; LDL Cholesterol Calculated 118 mg/dl; Potassium 4.1 mmol/L (3.3-5.1); Sodium 141 mmol/L (135-145); Total Protein 6.6 g/dL (6.5-8.0); Triglycerides 90 mg/dL
[2021-03-19 08:36] LABS: Prothrombin Time 11.8 SEC (10.8-13.0)
[2021-03-19 08:38] LABS: Partial Thromboplastin Time 34.5 SEC (24.1-38.0)
[2021-03-19 08:52] LABS: Ferritin 126 ng/mL (10-250); TSH reflex Free T4 1.47 uIU/mL (0.32-4.0); Vitamin D 25-OH Total 46.8 ng/mL (>30)
[2021-03-19 09:25] LABS: Vitamin B12 614 pg/mL (200-900)
[2021-03-19 10:47] LABS: Estimated Average Glucose 97 mg/dL; Hemoglobin A1C 104.3248 umol/L
[2021-03-20 09:52] LABS: Insulin Level Total 4.9 uIU/mL
[2021-03-22 23:41] LABS: Zinc 82 mcg/dL (60-130)
[2021-03-23 11:37] LABS: Calcium (PTHI) 9.4 mg/dL (8.6-10.4); PTHI 81 pg/mL (14-64)
[2021-03-23 22:02] LABS: Vitamin A 73 mcg/dL (38-98)
[2021-03-25 07:26] LABS: Vitamin B1 26 nmol/L (8-30)
== END 2021-03-19 06:44 | disposition home or self-care (01) ==
LOC: HO.LAB 06:43
PROVIDERS: PCP Internal Medicine; Visit Provider Surgery
DX: E66.9 Obesity, unspecified (principal); Z68.32 Body mass index [BMI] 32.0-32.9, adult; K91.2 Postsurgical malabsorption, not elsewhere classified; Z90.3 Acquired absence of stomach [part of]
CPT/HCPCS: 36415; 80053; 80061; 82306; 82607; 82728; 83036; 83525; 83970; 84425; 84443; 84590; 84630; 85025; 85610; 85730; 86140

== ENCOUNTER → 2021-04-09 08:04 | Outpatient (BNVA) | payer OTHER, SELFPAY | PROVIDERS: PCP Internal Medicine; Visit Provider Surgery ==